=== PATIENT | female | born 1990 | race Caucasian/White ===

== ENCOUNTER 2017-06-07 20:19 | Emergency (ER) | payer OTHER ==
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
[2017-06-07] MEDS ORDERED: KETOROLAC TROMETHAMINE 30 MG/1ML VIAL IM ONE (21:02)
[2017-06-07] MEDS ORDERED: ONDANSETRON HCL/PF 4 MG/ 2ML VIAL IM ONE (21:02)
[2017-06-07] MEDS ORDERED: KETOROLAC TROMETHAMINE 60 MG/2 ML VIAL ONE (21:07)
[2017-06-07 21:38] VITALS: BP 118/72
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
== END 2017-06-07 21:34 | disposition home or self-care (01) ==
LOC: ED 20:19
DX: S09.90XA Unspecified injury of head, initial encounter (principal); V89.2XXA Person injured in unspecified motor-vehicle accident, traffic, initial encounter; Y93.9 Activity, unspecified; Y99.9 Unspecified external cause status
CPT/HCPCS: 70450; J1885; J2405; 96372; 99283

== ENCOUNTER 2019-07-17 09:33 | Outpatient (CLI) | payer OTHER | END 2019-07-17 09:38 | LOC: LAB 09:33 | PROVIDERS: ATTEND Family Medicine | DX: Z11.3 Encounter for screening for infections with a predominantly sexual mode of transmission (principal); Z12.4 Encounter for screening for malignant neoplasm of cervix | CPT/HCPCS: 36415; 86703; 86803; 87491; 87591; 87661; 88148; G0143 ==